=== PATIENT | female | born 1990 | race Caucasian/White ===

== ENCOUNTER 2016-08-30 10:49 | Emergency (ER) | payer OTHER ==
[2016-08-30 11:59] LABS: BASO % 0.2 % (0.1-1.2); EOS # 0.2 10_X3_uL (0.0-0.4); EOS % 3.1 % (0.7-5.8); GRAN # 3.4 10_X3_uL (1.6-6.1); GRAN % 61.5 % (34.0-71.1); HEMATOCRIT 37.4 % (34-45); HEMOGLOBIN 12.6 g/dL (11.2-15.7); LYMPH # 1.5 10_X3_uL (1.2-3.7); LYMPH % 27.8 % (19.3-51.7); MEAN CORPUSCULAR HGB CONC 33.7 g/dL (32.0-36.0); MONO # 0.4 10_X3_uL (0.2-0.9); MONO % 7.4 % (4.7-12.5); PLATELET COUNT 254 x10_3/uL (182-369); RED BLOOD COUNT 4.35 x10_6/uL (3.9-5.2); RED CELL DISTRIBUTION WIDTH 13.1 % (11.7-14.4); WHITE BLOOD COUNT 5.5 x10_3/uL (4.0-10.0)
== END 2016-08-30 12:55 | disposition home or self-care (01) ==
LOC: ER 10:49
PROVIDERS: General Practice
DX: O20.0 Threatened abortion (principal); Z3A.11 11 weeks gestation of pregnancy
CPT/HCPCS: 36415; 85025; 86900; 86901; 96360; 99070; 99285-25